=== PATIENT | female | born 1990 | race African-American/Black ===

== ENCOUNTER 2016-05-19 16:56 | Emergency (ER) | payer OTHER ==
[~2016-05-19] VITALS: Ht 172.7 cm; Wt 132.2 kg
[2016-05-19] MEDS ORDERED: FLEXERIL5 MG PO (17:51)
[2016-05-19] MEDS ORDERED: MOTRIN600 MG PO (17:51)
[2016-05-19 17:55] VITALS: BP 125/77
== END 2016-05-19 17:58 | disposition home or self-care (01) ==
LOC: EXP 16:56 → EME 16:56 → EXP 17:58
DX: S43.402A Unspecified sprain of left shoulder joint, initial encounter (principal); M79.602 Pain in left arm; M25.552 Pain in left hip; V43.53XA Car driver injured in collision with pick-up truck in traffic accident, initial encounter
CPT/HCPCS: 99281; 99284

== ENCOUNTER 2016-08-15 11:57 | Emergency (ER) | payer OTHER ==
[~2016-08-15] VITALS: Ht 172.7 cm; Wt 129.2 kg
[~2016-08-15 11:57] MED LIST: FLEXERIL5 MG PO; MOTRIN600 MG PO
[2016-08-15] MEDS ORDERED: MOTRIN600 MG PO (14:22)
[2016-08-15] MEDS ORDERED: AMOXICILLIN500 MG PO (14:22)
[2016-08-15 14:34] VITALS: BP 00/00
== END 2016-08-15 14:36 | disposition home or self-care (01) ==
LOC: EME 11:57
DX: K08.89 Other specified disorders of teeth and supporting structures (principal); K04.7 Periapical abscess without sinus
CPT/HCPCS: 99281; 99283